=== PATIENT | male | born 1985 | race Caucasian/White ===

== ENCOUNTER 2021-02-03 09:09 | Emergency (ER) | payer SELFPAY ==
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
[2021-02-03 09:52] LABS: Absolute Lymphocytes (CBC) 1.4 K/uL (0.7-4.9); Basophils % 0.5 % (0-1.3); Hematocrit 41.1 % (39.6-49.0); Lymphocytes % 11.4 % (15.3-44.8); RBC Red Blood Cell Count 4.67 M/uL (4.33-5.43)
[2021-02-03 10:05] LABS: Albumin 4.2 g/dL (3.4-5.0); Bilirubin Total 0.4 mg/dL (0.2-1.0); Potassium 3.3 mmol/L (3.5-5.1); Protein, Total 8.4 g/dL (6.4-8.2)
[2021-02-03] MEDS ORDERED: NA CHLORIDE 0.9% 1,000 ML ONE (10:47)
[2021-02-03] MEDS ORDERED: CEFAZOLIN/SWI 1gm 1 GM/10 ML SYR ONE (10:47)
--- NOTE | 2021-02-03 10:57 | RAD REPORT ---
EXAM DESCRIPTION: Mario Bernabe Left02/03/2021 10:11 am CLINICAL HISTORY: Leg pain FINDINGS: External fixator device in place. Comminuted fracture involves the distal tibia. Markedly displaced medial malleolar fracture fragment
--- NOTE | 2021-02-03 11:00 | RAD REPORT ---
EXAM DESCRIPTION: RAD - Foot Left 2 View - 02/03/2021 10:11 am CLINICAL HISTORY: Left Foot pain FINDINGS: The external fixator device obscures visualization of portions of the calcaneus. Limited two view series obtained. No acute fracture/dislocation seen involving the foot.
--- NOTE | 2021-02-03 11:54 | EDPHYS ---
Physician Documentation [facility] Name: Brie Heredia Age: 35 yrs Sex: Male : 1985 Arrival Date: 02/03/2021 Time: 09:16 Bed 5 Private MD: Parviz Shafer HPI: 02/03 09:27 This 35 yrs old Male presents to ER via EMS with complaints of Leg Swelling. pacheco 09:27 The patient presents with decreased range of motion, pain, swelling, tenderness. The pacheco complaints affect the lateral aspect of left calf, left lateral ankle, lateral aspect of left foot, left heel, left medial ankle and left kitchen. Context: resulted from the patient falling. Onset: The symptoms/episode began/occurred 6 week(s) ago. Modifying factors: The symptoms are alleviated by elevating leg, remaining still, the symptoms are aggravated by movement, weight bearing. Associated signs and symptoms: The patient has no apparent associated signs or symptoms. The patient presents with decreased range of motion, pain, swelling, tenderness. The complaints affect the right foot, lateral aspect of left foot, medial aspect of left foot, left kitchen and dorsum of left foot. Context: The problem was sustained at home. Historical: - Allergies: 09:19 Sulfa (Sulfonamide Antibiotics); aa5 - Home Meds: 09:19 Suboxone sublingual [Active]; aa5 - PMHx: 09:19 Drug abuse; aa5 - PSHx: 09:19 L tib-fib sx; aa5 - Immunization history:: Adult Immunizations up to date, Vaccine Information Sheet provided. - Family history:: not pertinent. - Social history:: Smoking status: unknown. ROS: 09:27 Constitutional: Negative for fever, chills, and weight loss, Eyes: Negative for injury, pacheco pain, redness, and discharge, ENT: Negative for injury, pain, and discharge, Neck: Negative for injury, pain, and swelling, Cardiovascular: Negative for chest pain, palpitations, and edema, Respiratory: Negative for shortness of breath, cough, wheezing, and pleuritic chest pain, Abdomen/GI: Negative for abdominal pain, nausea, vomiting, diarrhea, and constipation, Back: Negative for injury and pain, : Negative for injury, bleeding, discharge, and swelling, Neuro: Negative for headache, weakness, numbness, tingling, and seizure, Psych: Negative for depression, anxiety, suicide ideation, homicidal ideation, and hallucinations, Allergy/Immunology: Negative for hives, rash, and allergies, Endocrine: Negative for neck swelling, polydipsia, polyuria, polyphagia, and marked weight changes, Hematologic/Lymphatic: Negative for swollen nodes, abnormal bleeding, and unusual bruising. 09:27 MS/extremity: Positive for decreased range of motion, pain, swelling, tenderness, of the left lateral ankle, lateral aspect of left foot, left heel, medial aspect of left foot, left kitchen and dorsum of left foot. Exam: 09:27 Constitutional: This is a well developed, well nourished patient who is awake, alert, pacheco and in no acute distress. Head/Face: Normocephalic, atraumatic. Eyes: Pupils equal round and reactive to light, extra-ocular motions intact. Lids and lashes normal. Conjunctiva and sclera are non-icteric and not injected. Cornea within normal limits. Periorbital areas with no swelling, redness, or edema. ENT: Nares patent. No nasal discharge, no septal abnormalities noted. Tympanic membranes are normal and external auditory canals are clear. Oropharynx with no redness, swelling, or masses, exudates, or evidence of obstruction, uvula midline. Mucous membranes moist. Neck: Trachea midline, no thyromegaly or masses palpated, and no cervical lymphadenopathy. Supple, full range of motion without nuchal rigidity, or vertebral point tenderness. No Meningismus. Chest/axilla: Normal chest wall appearance and motion. Nontender with no deformity. No lesions are appreciated. Cardiovascular: Regular rate and rhythm with a normal S1 and S2. No gallops, murmurs, or rubs. Normal PMI, no JVD. No pulse deficits. Respiratory: Lungs have equal breath sounds bilaterally, clear to auscultation and percussion. No rales, rhonchi or wheezes noted. No increased work of breathing, no retractions or nasal flaring. Abdomen/GI: Soft, non-tender, with normal bowel sounds. No distension or tympany. No guarding or rebound. No evidence of tenderness throughout. Back: No spinal tenderness. No costovertebral tenderness. Full range of motion. Male : Normal genitalia with no discharge or lesions. Neuro: Awake and alert, GCS 15, oriented to person, place, time, and situation. Cranial nerves II-XII grossly intact. Motor strength 5/5 in all extremities. Sensory grossly intact. Cerebellar exam normal. Normal gait. Psych: Awake, alert, with orientation to person, place and time. Behavior, mood, and affect are within normal limits. 09:27 Skin: cellulitis, that is moderate, on the lateral side of left heel, medial aspect of left heel and heel of left foot. Vital Signs: 09:16 BP 147 / 90; Pulse 100; Resp 20 S; Temp 97.8(TE); Pulse Ox 100% on R/A; aa5 10:00 BP 114 / 82; Pulse 82; Resp 18; Pulse Ox 100% on R/A; tr6 MDM: 09:22 Patient medically screened. [facility] 09:30 Differential diagnosis: closed fracture, tendonitis, sprain. Data reviewed: vital pacheco signs, nurses notes, lab test result(s), radiologic studies, plain films. Data interpreted: court recording monitor: rate is 100 beats/min, rhythm is regular, Pulse oximetry: on room air is 100 %. Test interpretation: by ED physician or midlevel provider: plain radiologic studies. Counseling: I had a detailed discussion with the patient and/or guardian regarding: the historical points, exam findings, and any diagnostic results supporting the discharge/admit diagnosis, lab results, radiology results, the need to transfer to another facility, for higher level of care, [facility] does not immediately have the required specialist. 02/03 09:27 Order name: CBC with Diff [facility] 02/03 09:27 Order name: Comprehensive Metabolic Panel [facility] 02/03 09:27 Order name: Sed Rate [facility] 02/03 09:28 Order name: CBC with Automated Diff; Complete Time: 11:17 [facility] 02/03 09:28 Order name: Comprehensive Metabolic Panel; Complete Time: 11:17 [facility] 02/03 09:28 Order name: Sedimentation Rate, Westergren; Complete Time: 11:17 [facility] 02/03 09:27 Order name: Tib Fib Left XRAY; Complete Time: 11:17 [facility] 02/03 10:11 Order name: Foot Left 2 View; Complete Time: 11:17 [facility] 02/03 11:55 Order name: SARS-COV-2 RT PCR [facility] 02/03 09:44 Order name: IV Saline Lock; Complete Time: 09:44 [email or web address] 02/03 12:08 Order name: Crutches; Complete Time: 12:25 pacheco Administered Medications: 10:30 Drug: Ancef (cefazolin) 1 grams Route: IVPB; Site: right antecubital; tr6 10:30 Drug: NS 0.9% 1000 ml Route: IV; Rate: 1 bolus; Site: right antecubital; tr6 12:10 Drug: KeFLEX (cephalexin) 500 mg {Note: med given to pt. pt placed med in water and tr6 states "I'll take it later." MD Su aware.} Route: PO; 12:15 Drug: Bactroban (mupirocin) Ointment 2 % 1 application Route: Topical; Site: affected tr6 area; 12:15 Drug: Doxycycline 200 mg {Note: med given to pt. pt placed med in water jug and stated tr6 "i'll take it later." MD Su aware.} Route: PO; 12:20 Drug: Ativan (LORazepam) 1 mg Route: IVP; Site: right antecubital; tr6 Disposition Summary: 02/03/21 11:54 Discharge Ordered Location: Home pacheco Problem: new pacheco Symptoms: have improved pacheco Condition: Stable pacheco Diagnosis - Cellulitis and acute lymphangitis of other parts of limb - local, external fixator pacheco - Abuse of other non-psychoactive substances pacheco Followup: pacheco - With: Private Physician - When: 2 - 3 days - Reason: Recheck today's complaints, Continuance of care, Re-evaluation by your physician Followup: pacheco - With: Gilberto Solomon MD - When: 2 - 3 days - Reason: Recheck today's complaints, Re-evaluation by your physician Discharge Instructions: - Discharge Summary Sheet pacheco - Displaced Bimalleolar Ankle Fracture Treated With ORIF pacheco - Cellulitis, Adult pacheco - Substance Use Disorder pacheco - Tibial Fracture, Adult pacheco - Cellulitis, Adult, [id number] pacheco - Displaced Bimalleolar Ankle Fracture Treated With ORIF, Care After pacheco Forms: - Medication Reconciliation Form pacheco - Thank You Letter pacheco - Antibiotic Education pacheco - Prescription Opioid Use pacheco Prescriptions: - Centany 2 % Topical ointment - apply 1 application by TOPICAL route 3 times per day; 22 gram; Refills: 0, pacheco Product Selection Permitted - Cephalexin 500 mg Oral Capsule - take 1 capsule by ORAL route every 6 hours for 10 days; 40 capsule; Refills: 0, [facility] Product Selection Permitted - Doxycycline Hyclate 100 mg Oral Tablet - take 1 tablet by ORAL route every 12 hours; 20 tablet; Refills: 0, Product pacheco Selection Permitted Signatures: Dispatcher [employer] EDParviz Fisher MD MD cha Calderon, Audri, RN RN aa5 Tammy Urbina [email or web address] Laquita Read RN RN tr6 Corrections: (The following items were deleted from the chart) 09:20 09:19 Allergies: No Known Allergies; aa5 aa5 10:11 09:28 Foot Left 3 View+RAD.RAD.BRZ ordered. EDMS EDMS 10:51 09:46 CORONAVIRUS+MR.LAB.BRZ ordered. EDMS EDMS
--- NOTE | 2021-02-03 11:54 | ER ---
[facility] Name: Brie Heredia Age: 35 yrs Sex: Male : 1985 Arrival Date: 02/03/2021 Time: 09:16 Bed 5 Private MD: Diagnosis: Cellulitis and acute lymphangitis of other parts of limb-local, external fixator;Abuse of other non-psychoactive substances Presentation: 02/03 09:16 Chief complaint: EMS states: Pt had leg surgery on December 2020 at [facility] in [place], [place] and has not followed-up since then. Swelling and redness noted to left lower leg with external fixator in place noted. Coronavirus screen: At this time, the client does not indicate any symptoms associated with coronavirus-19. Ebola Screen: Patient negative for fever greater than or equal to 101.5 degrees Fahrenheit, and additional compatible Ebola Virus Disease symptoms. Initial Sepsis Screen: Does the patient meet any 2 criteria? HR > 90 bpm. Does the patient have a suspected source of infection? Yes:. Risk Assessment: Do you want to hurt yourself or someone else? Patient reports no desire to harm self or others. Onset of symptoms was 2020. 09:16 Method Of Arrival: EMS: [facility] 09:16 Acuity: ELISE 3 aa5 Historical: - Allergies: 09:19 Sulfa (Sulfonamide Antibiotics); aa5 - Home Meds: 09:19 Suboxone sublingual [Active]; aa5 - PMHx: 09:19 Drug abuse; aa5 - PSHx: 09:19 L tib-fib sx; aa5 - Immunization history:: Adult Immunizations up to date, Vaccine Information Sheet provided. - Family history:: not pertinent. - Social history:: Smoking status: unknown. Screenin:49 Nutritional screening: No deficits noted. Tuberculosis screening: No symptoms or risk tr6 factors identified. Fall Risk Assessment: 09:47 General: Appears in no apparent distress. comfortable, Behavior is anxious, tr6 inappropriate for age, restless. Pain: Complains of pain in left foot. Neuro: Level of Consciousness is awake, alert, obeys commands, confused, Oriented to person, place, time, Speech is normal. Cardiovascular: No deficits noted. Respiratory: No deficits noted. GI: No deficits noted. : No deficits noted. EENT: No deficits noted. Derm: Skin is red, redness to left foot. Musculoskeletal: Range of motion: limited in left ankle left external fixator to left foot. 10:49 Reassessment: pt believes that he is in coma and that staff is lying to him. tr6 11:15 Reassessment: instructions reviewed with pt about care for external fixator. pt unable tr6 to tolerate education as he continues to state "I know you're lying to me. I know I'm .". 12:28 Reassessment: results reviewed with pt. RN attempted to give pt PO antibiotics. pt took tr6 meds and then spit them in water jug. When RN asked pt to take them pt states "i'll take them later" MD Su aware. Vital Signs: 09:16 BP 147 / 90; Pulse 100; Resp 20 S; Temp 97.8(TE); Pulse Ox 100% on R/A; aa5 10:00 BP 114 / 82; Pulse 82; Resp 18; Pulse Ox 100% on R/A; tr6 ED Course: 09:16 Patient arrived in ED. aa5 09:16 Arm band placed on. aa5 09:19 Triage completed. aa5 09:22 Parviz Su MD is Attending Physician. pacheco 09:37 Initial lab(s) drawn, by me, sent to lab. Inserted saline lock: 20 gauge in right kj1 antecubital area, using aseptic technique. Blood collected. 09:42 Laquita Read, SHARAD is Primary Nurse. tr6 09:49 Resting quietly. Awaiting lab results. tr6 09:49 Patient has correct armband on for positive identification. Placed in gown. Bed in low tr6 position. Call light in reach. Side rails up X2. Pulse ox on. NIBP on. Door closed. Noise minimized. Visitors limited. Lights dimmed. Moved to private room. 09:49 No provider procedures requiring assistance completed. Patient maintains SpO2 tr6 saturation greater than 95% on room air. 10:11 Tib Fib Left XRAY In Process Unspecified. EDMS 10:11 Foot Left 2 View In Process Unspecified. EDMS 11:[address] Su to [facility], pt denied due to all [facility] being on divert, per Amanda. 11:51 Gilberto Solomon MD is Referral Physician. [facility] 12:29 IV discontinued, intact, bleeding controlled, No redness/swelling at site. Pressure tr6 dressing applied. Administered Medications: 10:30 Drug: Ancef (cefazolin) 1 grams Route: IVPB; Site: right antecubital; tr6 10:30 Drug: NS 0.9% 1000 ml Route: IV; Rate: 1 bolus; Site: right antecubital; tr6 12:10 Drug: KeFLEX (cephalexin) 500 mg {Note: med given to pt. pt placed med in water and tr6 states "I'll take it later." MD Su aware.} Route: PO; 12:15 Drug: Bactroban (mupirocin) Ointment 2 % 1 application Route: Topical; Site: affected tr6 area; 12:15 Drug: Doxycycline 200 mg {Note: med given to pt. pt placed med in water jug and stated tr6 "i'll take it later." MD Su aware.} Route: PO; 12:20 Drug: Ativan (LORazepam) 1 mg Route: IVP; Site: right antecubital; tr6 Outcome: 11:54 Discharge ordered by . pacheco 12:28 Discharged to home via wheelchair, with crutches. tr6 12:28 Condition: stable 12:28 Discharge instructions given to patient, Instructed on discharge instructions, no drinking with medication, medication usage, safety practices, crutch walking, wound care, Demonstrated understanding of instructions, follow-up care, medications, wound care, crutch walking, Prescriptions given X 3. 12:30 Patient left the ED. tr6 Signatures: Dispatcher [employer] EDMS Isha Carlson Corey, MD MD cha Calderon, Audri RN RN [email or web address] Tammy Urbina Tiffany, RN RN tr6 Corrections: (The following items were deleted from the chart) 09:20 09:19 Allergies: No Known Allergies; christina vasquez
[2021-02-03] MEDS ORDERED: MUPIROCIN 2% OINT 22GM TUBE TOP ONE ×2 (12:21)
[2021-02-03] MEDS ORDERED: DOXYCYCLINE 100 MG CAP PO ONE (12:21)
[2021-02-03] MEDS ORDERED: CEPHALEXIN 250 MG CAP ONE (12:21)
[2021-02-03] MEDS ORDERED: LORazepam 2 MG/ML VIAL ONE (12:36)
[2021-02-03 12:37] VITALS: TEMP 97.8; O2SAT 100
[2021-02-03 12:38] VITALS: BP 114/82
== END 2021-02-03 12:30 | disposition home or self-care (01) ==
LOC: ER 09:09
DX: L03.116 Cellulitis of left lower limb (principal); L03.126 Acute lymphangitis of left lower limb; F55.8 Abuse of other non-psychoactive substances; Z20.822 Contact with and (suspected) exposure to COVID-19; Z88.2 Allergy status to sulfonamides
CPT/HCPCS: 36415; 80053; 85025; 85652; 96374; 96375; 99285; J0690; J7030; U0003

== ENCOUNTER 2021-02-04 23:42 | Emergency (ER) | payer SELFPAY ==
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
--- NOTE | 2021-02-05 03:30 | EDPHYS ---
Physician Documentation [facility] Name: Brie Heredia Age: 35 yrs Sex: Male : 1985 Arrival Date: 02/04/2021 Time: 23:48 Bed 12 Private MD: SUNI Physician Parviz Su HPI: 02/05 03:21 This 35 yrs old Male presents to ER via Wheelchair with complaints of LEFT pacheco BACK PAIN. 03:21 The patient presents with decreased range of motion, pain, that is acute. The pacheco complaints affect the lateral aspect of left calf, left lateral ankle, lateral aspect of left foot, left heel, medial aspect of left calf, medial aspect of left foot, left kitchen and anterior aspect of left ankle. Context: The problem was sustained at home, resulted from the patient falling, hanging on a ledge. Onset: The symptoms/episode began/occurred 5 day(s) ago. Modifying factors: The symptoms are alleviated by nothing. elevating leg, remaining still, the symptoms are aggravated by nothing. Associated signs and symptoms: The patient has no apparent associated signs or symptoms. Severity of symptoms: At their worst the symptoms were mild, moderate, in the emergency department the symptoms are unchanged. The patient has not experienced similar symptoms in the past. Historical: - Allergies: 02/04 23:54 Sulfa (Sulfonamide Antibiotics); kg - Home Meds: 23:54 Suboxone sublingual [Active]; kg - PMHx: 23:54 drug abuse; kg - PSHx: 23:54 L tib-fib sx; kg - Immunization history:: Adult Immunizations not up to date, Client reports having NOT received the Covid vaccine. - Social history:: Smoking status: Patient reports the use of cigarette tobacco products, smokes one-half pack cigarettes per day, Patient uses alcohol, on a daily basis. - Family history:: not pertinent. ROS: 02/05 03:21 Constitutional: Negative for fever, chills, and weight loss, Eyes: Negative for injury, pacheco pain, redness, and discharge, ENT: Negative for injury, pain, and discharge, Neck: Negative for injury, pain, and swelling, Cardiovascular: Negative for chest pain, palpitations, and edema, Respiratory: Negative for shortness of breath, cough, wheezing, and pleuritic chest pain, Abdomen/GI: Negative for abdominal pain, nausea, vomiting, diarrhea, and constipation, Back: Negative for injury and pain, : Negative for injury, bleeding, discharge, and swelling, Neuro: Negative for headache, weakness, numbness, tingling, and seizure, Psych: Negative for depression, anxiety, suicide ideation, homicidal ideation, and hallucinations, Allergy/Immunology: Negative for hives, rash, and allergies, Endocrine: Negative for neck swelling, polydipsia, polyuria, polyphagia, and marked weight changes, Hematologic/Lymphatic: Negative for swollen nodes, abnormal bleeding, and unusual bruising. MS/extremity: Positive for decreased range of motion, pain, swelling, tenderness, of the lateral aspect of left calf, left lateral ankle, lateral aspect of left foot, left heel, medial aspect of left foot, left kitchen, anterior aspect of left ankle and dorsum of left foot. Skin: Positive for erythema, swelling, of the lateral side of right heel, right Achilles, right lateral malleolus, right medial malleolus and medial aspect of right heel. Exam: 03:21 Constitutional: This is a well developed, well nourished patient who is awake, alert, pacheco and in no acute distress. Head/Face: Normocephalic, atraumatic. Eyes: Pupils equal round and reactive to light, extra-ocular motions intact. Lids and lashes normal. Conjunctiva and sclera are non-icteric and not injected. Cornea within normal limits. Periorbital areas with no swelling, redness, or edema. ENT: Nares patent. No nasal discharge, no septal abnormalities noted. Tympanic membranes are normal and external auditory canals are clear. Oropharynx with no redness, swelling, or masses, exudates, or evidence of obstruction, uvula midline. Mucous membranes moist. Neck: Trachea midline, no thyromegaly or masses palpated, and no cervical lymphadenopathy. Supple, full range of motion without nuchal rigidity, or vertebral point tenderness. No Meningismus. Chest/axilla: Normal chest wall appearance and motion. Nontender with no deformity. No lesions are appreciated. Cardiovascular: Regular rate and rhythm with a normal S1 and S2. No gallops, murmurs, or rubs. Normal PMI, no JVD. No pulse deficits. Respiratory: Lungs have equal breath sounds bilaterally, clear to auscultation and percussion. No rales, rhonchi or wheezes noted. No increased work of breathing, no retractions or nasal flaring. Abdomen/GI: Soft, non-tender, with normal bowel sounds. No distension or tympany. No guarding or rebound. No evidence of tenderness throughout. Back: No spinal tenderness. No costovertebral tenderness. Full range of motion. Male : Normal genitalia with no discharge or lesions. Neuro: Awake and alert, GCS 15, oriented to person, place, time, and situation. Cranial nerves II-XII grossly intact. Motor strength 5/5 in all extremities. Sensory grossly intact. Cerebellar exam normal. Normal gait. Psych: Awake, alert, with orientation to person, place and time. Behavior, mood, and affect are within normal limits. 03:21 Skin: cellulitis, that is moderate, induration, that is mild is noted, injury, puncture(s), of the lateral side of left heel, left Achilles, left lateral malleolus, left medial malleolus, medial aspect of left heel and heel of left foot. Vital Signs: 02/04 23:50 Pulse 99; Resp 20; Temp 98.1(O); Pulse Ox 99% on R/A; Weight 81.65 kg (R); Height 5 ft. kg 8 in. (172.72 cm); Pain 10/10; 02/05 04:46 BP 114 / 61; Pulse 76; Resp 16 S; Temp 98.3(O); Pulse Ox 98% on R/A; bb 02/04 23:50 Body Mass Index 27.37 (81.65 kg, 172.72 cm) kg MDM: 02:41 Patient medically screened. [facility] 03:28 Differential diagnosis: abrasion, tendonitis. Data reviewed: vital signs, nurses notes, [facility] lab test result(s), radiologic studies, plain films. Data interpreted: monitor and storage bin tender: rate is 20 beats/min, rhythm is regular. Test interpretation: by ED physician or midlevel provider: plain radiologic studies. Counseling: I had a detailed discussion with the patient and/or guardian regarding: the historical points, exam findings, and any diagnostic results supporting the discharge/admit diagnosis, lab results, radiology results. 02/05 02:53 Order name: CBC with Diff; Complete Time: 04:44 pacheco 02/05 02:53 Order name: Comprehensive Metabolic Panel; Complete Time: 04:44 pacheco 02/05 05:14 Order name: SARS-COV-2 RT PCR EDMS 02/05 04:46 Order name: Diet Regular; Complete Time: 04:47 pacheco Administered Medications: 03:35 Drug: NS 0.9% 500 ml Route: IV; Rate: bolus; Site: left antecubital; bb 04:22 Follow up: IV Status: Completed infusion; IV Intake: 500ml bb 03:37 Drug: Ketorolac 30 mg Route: IVP; Site: left antecubital; bb 04:22 Follow up: Response: No adverse reaction bb 03:40 Drug: Ancef (cefazolin) 2 grams Route: IVPB; Infused Over: 30 mins; Site: left bb antecubital; 04:22 Follow up: IV Status: Completed infusion; IV Intake: 100ml bb 05:01 Drug: Potassium Effervescent Tablet 25 mEq Route: PO; bb 05:31 Follow up: Response: No adverse reaction bb Disposition Summary: 02/05/21 03:30 Transfer Ordered Transfer Location: [facility] Reason: Higher level of care pacheco Condition: Stable pacheco Problem: new pacheco Symptoms: have improved pacheco Accepting Physician: dr alvarenga(02/05/21 05:31) savanna Diagnosis - Cellulitis and acute lymphangitis of other parts of limb - external fixator, pacheco infected Forms: - Medication Reconciliation Form pacheco - SBAR form pacheco Signatures: Dispatcher [employer] EDMS Parviz Su MD MD cha Ballard, Brenda, RN RN bb Graham, Kristen, RN RN kg Corrections: (The following items were deleted from the chart) 04:22 02:58 CORONAVIRUS+MR.LAB.BRZ ordered. EDMS EDMS 05:31 03:30 dr colette corrales
--- NOTE | 2021-02-05 03:30 | ER ---
Nurse's Notes [facility] Name: Brie Heredia Age: 35 yrs Sex: Male : 1985 Arrival Date: 02/04/2021 Time: 23:48 Bed 12 Private MD: Diagnosis: Cellulitis and acute lymphangitis of other parts of limb-external fixator, infected Presentation: 02/04 23:50 Chief complaint: Patient states: Left foot pain and swelling x 1 day. Pt stated, "I was kg just here yesterday and they gave me sulfa antibiotics and I'm allergic to them and my foot hurts and all swollen up. I need a mental health evaluation. I feel like I'm in a dream and cant wake up, bad things keep happening to me. I'm around people that love me but its just not working. " Pt denies any SI or HI. Coronavirus screen: Vaccine status: Patient reports being unvaccinated. Client denies travel out of the [place] in the last 14 days. At this time, unable to obtain information related to travel outside the [place] At this time, the client does not indicate any symptoms associated with coronavirus-19. Ebola Screen: Patient negative for fever greater than or equal to 101.5 degrees Fahrenheit, and additional compatible Ebola Virus Disease symptoms Patient denies exposure to infectious person. Patient denies travel to an Ebola-affected area in the 21 days before illness onset. Initial Sepsis Screen: Does the patient meet any 2 criteria? No. Patient's initial sepsis screen is negative. Does the patient have a suspected source of infection? No. Patient's initial sepsis screen is negative. Risk Assessment: Do you want to hurt yourself or someone else? Patient reports no desire to harm self or others. Onset of symptoms was February 04, 2021. 23:50 Method Of Arrival: Wheelchair kg 23:50 Acuity: ELISE 4 kg Triage Assessment: 23:54 General: Appears in no apparent distress. Behavior is cooperative, appropriate for age, kg anxious, quiet. Pain: Complains of pain in left foot and left leg. Musculoskeletal: Swelling present in left foot Redness to left foot. Historical: - Allergies: 23:54 Sulfa (Sulfonamide Antibiotics); kg - Home Meds: 23:54 Suboxone sublingual [Active]; kg - PMHx: 23:54 drug abuse; kg - PSHx: 23:54 L tib-fib sx; kg - Immunization history:: Adult Immunizations not up to date, Client reports having NOT received the Covid vaccine. - Social history:: Smoking status: Patient reports the use of cigarette tobacco products, smokes one-half pack cigarettes per day, Patient uses alcohol, on a daily basis. - Family history:: not pertinent. Screenin:57 Abuse screen: Denies threats or abuse. Denies injuries from another. Nutritional kg screening: No deficits noted. Tuberculosis screening: No symptoms or risk factors identified. Fall Risk Fall in past 12 months (25 points). Secondary diagnosis (15 points) impaired mobility, No IV (0 pts). Ambulatory Aid- Crutches/Cane/Walker (15 pts). Gait- Impaired (20 pts.). Mental Status- Oriented to own ability (0 pts). Total Graves Fall Scale indicates No Risk (0-24 pts). Assessment: 02/05 02:30 General: Appears in no apparent distress. uncomfortable, Behavior is restless. Pain: bb Complains of pain in left leg. Neuro: Level of Consciousness is awake, listless, Oriented to person, place, situation. Cardiovascular: Capillary refill < 3 seconds Patient's skin is warm and dry. Respiratory: Respiratory effort is even, unlabored, Respiratory pattern is regular. GI: No signs and/or symptoms were reported involving the gastrointestinal system. Derm: Skin is pink, warm \\T\\ dry. Musculoskeletal: Swelling present in left leg Reports pain in left leg external fixator in place pt foot erythematous, edematous. 04:22 Reassessment: Patient is alert, oriented x 3, equal unlabored respirations, skin bb warm/dry/pink. awaiting transfer, IV site intact with no erythema or edema noted. 04:56 Reassessment: report called to [place] ED spoke to Edwige OROURKE. savanna 05:30 Reassessment: EMS at bedside for transfer of pt to [facility] pt is A\\T\\O x 4, resp bb unlabored. IV site intact with no erythema or edema noted. 05:31 Reassessment: pt given sandwich, drink, and chips to take with him. bb Vital Signs: 02/04 23:50 Pulse 99; Resp 20; Temp 98.1(O); Pulse Ox 99% on R/A; Weight 81.65 kg (R); Height 5 ft. kg 8 in. (172.72 cm); Pain 10/10; 02/05 04:46 BP 114 / 61; Pulse 76; Resp 16 S; Temp 98.3(O); Pulse Ox 98% on R/A; bb 02/04 23:50 Body Mass Index 27.37 (81.65 kg, 172.72 cm) kg ED Course: 02/04 23:48 Patient arrived in ED. cf2 23:54 Triage completed. kg 23:54 Arm band placed on. kg 23:57 Patient has correct armband on for positive identification. kg 02/05 02:41 Parviz Su MD is Attending Physician. pacheco 02:56 initiated a transfer with Laura Toney from [facility]. 2 03:23 administrative approval given by Laura Toney/ patient has been accepted to [address] to the Emergency Department/ Dr. Gee accepted the patient in transfer/ report to be called to [phone]. 03:29 Wanda Galeas, RN is Primary Nurse. bb 03:35 Initial lab(s) drawn, by me, sent to lab. COVID swab sent to lab. Inserted saline lock: bb 20 gauge in left antecubital area, using aseptic technique. Blood collected. 03:55 Patient transferred, IV remains in place. bb 04:23 No provider procedures requiring assistance completed. bb Administered Medications: 03:35 Drug: NS 0.9% 500 ml Route: IV; Rate: bolus; Site: left antecubital; bb 04:22 Follow up: IV Status: Completed infusion; IV Intake: 500ml bb 03:37 Drug: Ketorolac 30 mg Route: IVP; Site: left antecubital; bb 04:22 Follow up: Response: No adverse reaction bb 03:40 Drug: Ancef (cefazolin) 2 grams Route: IVPB; Infused Over: 30 mins; Site: left bb antecubital; 04:22 Follow up: IV Status: Completed infusion; IV Intake: 100ml bb 05:01 Drug: Potassium Effervescent Tablet 25 mEq Route: PO; bb 05:31 Follow up: Response: No adverse reaction bb Intake: 04:22 IV: 100ml; Total: 100ml. bb 04:22 IV: 500ml; Total: 600ml. bb Outcome: 03:30 ER care complete, transfer ordered by . pacheco 03:55 Instructed on the need for transfer. bb 04:46 Condition: stable bb 04:57 Transferred by ground EMS to [facility], Transfer form completed. X-rays sent bb w/ patient. 05:31 Patient left the ED. bb Signatures: Parviz Su MD MD cha Ballard, Brenda, RN RN Trish Huertas mw2 Freddie Peacock 2 Nancy Renner, RN RN kg
[2021-02-05] MEDS ORDERED: NA CHLORIDE 0.9% 500 ML ONE (03:40)
[2021-02-05] MEDS ORDERED: MUPIROCIN 2% OINT 22GM TUBE TOP ONE (03:41)
[2021-02-05] MEDS ORDERED: CEFAZOLIN/SWI 1gm 2 GM/20 ML SYR ONE (03:43)
[2021-02-05] MEDS ORDERED: KETOROLAC 30 MG/ML INJ ONE (03:43)
[2021-02-05] MEDS ORDERED: NA CHLORIDE 0.9% 100 ML ONE (03:44)
[2021-02-05 04:04] LABS: Absolute Lymphocytes (CBC) 1.9 K/uL (0.7-4.9); Basophils % 0.6 % (0-1.3); Hematocrit 38.6 % (39.6-49.0); Lymphocytes % 19.7 % (15.3-44.8); MPV 8.5 fL (7.6-11.3); RBC Red Blood Cell Count 4.38 M/uL (4.33-5.43)
[2021-02-05 04:25] LABS: Albumin 3.6 g/dL (3.4-5.0); Bilirubin Total 0.3 mg/dL (0.2-1.0); Potassium 3.3 mmol/L (3.5-5.1); Protein, Total 7.3 g/dL (6.4-8.2)
[2021-02-05] MEDS ORDERED: POTASSIUM 25 MEQ EFFERV TAB ONE (05:21)
[2021-02-05 05:41] VITALS: BP 114/61; TEMP 98.3; O2SAT 98
== END 2021-02-05 05:31 | disposition short-term general hospital (02) ==
LOC: ER 23:42
DX: L03.116 Cellulitis of left lower limb (principal); L03.126 Acute lymphangitis of left lower limb; F17.210 Nicotine dependence, cigarettes, uncomplicated; Z88.2 Allergy status to sulfonamides
CPT/HCPCS: 36415; 80053; 85025; 96365; 96375; 99285; J0690; J7040; U0003

== ENCOUNTER 2024-08-13 16:32 | Emergency (ER) | payer OTHER, SELFPAY ==
[2024-08-13] MEDS ORDERED: KETOROLAC 30 MG/ML INJ ONE (18:44)
--- NOTE | 2024-08-13 18:45 | RAD REPORT ---
EXAM:Extremity Venous Uni Ltd HISTORY: Right leg pain TECHNIQUE: Sonographic evaluation right lower extremity performed.Grayscale, color and spectral marianne sis performed on all vessels COMPARISON: None. FINDINGS: Right common femoral, superficial femoral, greater saphenous, popliteal and posterior tibial veins ar e compressible and demonstrate augmentation. Doppler demonstrates good flow. IMPRESSION: No evidence of deep venous thrombosis involving the right lower extremity.
--- NOTE | 2024-08-13 19:22 | ER ---
Nurse's Notes [facility] Name: Brie Heredia Age: 39 yrs Sex: Male : 1985 Arrival Date: 08/13/2024 Time: 16:32 Bed 10 [facility] MD: Diagnosis: Sciatica, right side Presentation: 08/13 16:47 Chief complaint: Right posterior leg pain that radiates to behind the right knee that hb started after bending over to pain 2 weeks ago. Pain is worse with movement and when bends head forward. Coronavirus screen: At this time, the client does not indicate any symptoms associated with coronavirus-19. Ebola Screen: No symptoms or risks identified at this time. Initial Sepsis Screen: Does the patient meet any 2 criteria? No. Patient's initial sepsis screen is negative. Does the patient have a suspected source of infection? No. Patient's initial sepsis screen is negative. Risk Assessment: Do you want to hurt yourself or someone else? Patient reports no desire to harm self or others. Onset of symptoms was July 2024. 16:47 Method Of Arrival: Wheelchair hb 16:47 Acuity: ELISE 4 hb Historical: - Allergies: 16:49 Sulfa (Sulfonamide Antibiotics); hb - Home Meds: 16:49 Suboxone sublingual [Active]; hb - PMHx: 16:49 drug abuse; hb - PSHx: 16:49 L tib-fib sx; hb - Immunization history:: Adult Immunizations up to date. - Infectious Disease History:: Denies. - Social history:: Smoking status: Patient reports the use of cigarette tobacco products. Screenin:[address] [facility] ED Fall Risk Assessment (Adult) History of falling in the last 3 months, ap3 including since admission No falls in past 3 months (0 pts) Confusion or Disorientation No (0 pts) Intoxicated or Sedated No (0 pts) Impaired Gait No (0 pts) Mobility Assist Device Used No (0 pt) Altered Elimination No (0 pt) Score/Fall Risk Level 0 - 2 = Low Risk Oriented to surroundings, Maintained a safe environment, Educated pt \T\ family on fall prevention, incl call for assistance when getting out of bed, Assessed \T\ reinforced patient's understanding of fall precautions, Hourly rounding (assess needs \T\ fall precautionary measures) done, Used ambulatory aids as needed (educated on \T\ assisted with). Abuse screen: Denies threats or abuse. Nutritional screening: No deficits noted. Tuberculosis screening: No symptoms or risk factors identified. Assessment: 18:03 General: Appears uncomfortable, Behavior is calm, cooperative, appropriate for age. ap3 Pain: Complains of pain in right leg Pain currently is 10 out of 10 on a pain scale. Neuro: Level of Consciousness is awake, alert, obeys commands, Oriented to person, place, time, situation. Cardiovascular: Patient's skin is warm and dry. Respiratory: Airway is patent Respiratory effort is even, unlabored, Respiratory pattern is regular, symmetrical. 18:56 Reassessment: Patient and/or family updated on plan of care and expected duration. Pain ap3 level reassessed. Patient is alert, oriented x 3, equal unlabored respirations, skin warm/dry/pink. General: Appears in no apparent distress. Vital Signs: 16:47 BP 121 / 70; Pulse 89; Resp 18; Temp 98.6(O); Pulse Ox 96% on R/A; Weight 95.25 kg; hb Height 5 ft. 8 in. ; Pain 10/10; 19:28 BP 118 / 68; Pulse 76; Resp 17; Temp 98.5; Pulse Ox 96% ; me1 16:47 Body Mass Index 31.93 (95.25 kg, 172.72 cm) hb 16:47 Pain Scale: Adult hb ED Course: 16:35 Patient arrived in ED. cj3 16:49 Triage completed. hb 16:50 Arm band placed on. hb 16:59 Parviz Carlos PA is PHCP. cp 16:59 Parviz Su MD is Attending Physician. cp 18:03 Nancy Lambert, SHARAD is Primary Nurse. ap3 18:32 US Extremity Venous Unilateral Ltd In Process Unspecified. EDMS 19:33 Patient has correct armband on for positive identification. Bed in low position. Call me1 light in reach. Side rails up X 1. Provided Education on: POC. Verbalized understanding.. 19:33 No provider procedures requiring assistance completed. Patient did not have IV access me1 during this emergency room visit. Administered Medications: 18:56 Drug: Ketorolac IM 30 mg IM once Route: IM; Site: right deltoid; ap3 19:28 Follow up: Response: No adverse reaction me1 Medication: 19:33 VIS not applicable for this client. me1 Outcome: 19:21 Discharge ordered by MD. cp 19:34 Discharged to home ambulatory, me1 19:34 Condition: stable 19:34 Discharge instructions given to patient, Instructed on discharge instructions, follow up and referral plans. medication usage, Demonstrated understanding of instructions, follow-up care, medications, Prescriptions given X 3, 19:34 Patient left the ED. me1 Signatures: Dispatcher [employer] EDMS Parviz Carlos PA PA cp Coreen Rosas, RN RN Nancy Lambert RN RN ap3 Skylar Weston RN RN me1 Melissa Murry 3
--- NOTE | 2024-08-13 19:22 | EDPHYS ---
Physician Documentation [facility] Name: Brie Heredia Age: 39 yrs Sex: Male : 1985 Arrival Date: 08/13/2024 Time: 16:32 Bed 10 Private MD: SUNI Physician Parviz Su HPI: 08/13 18:00 This 39 yrs old Male presents to ER via Wheelchair with complaints of Leg Pain, Groin cp Pain. 18:00 The patient presents with pain, that is acute. The complaints affect the back of right cp leg. Historical: - Allergies: 16:49 Sulfa (Sulfonamide Antibiotics); hb - Home Meds: 16:49 Suboxone sublingual [Active]; hb - PMHx: 16:49 drug abuse; hb - PSHx: 16:49 L tib-fib sx; hb - Immunization history:: Adult Immunizations up to date. - Infectious Disease History:: Denies. - Social history:: Smoking status: Patient reports the use of cigarette tobacco products. ROS: 18:05 MS/extremity: Positive for pain, of the back of right leg, Negative for injury or acute cp deformity, decreased range of motion, 18:05 Eyes: Negative for injury, pain, redness, and discharge, cp 18:05 Constitutional: Negative for body aches, chills, fever, 18:05 Neck: Negative for pain with movement, pain at rest, stiffness, 18:05 Abdomen/GI: Negative for abdominal pain, nausea, vomiting, and diarrhea, constipation, bowel incontinence, 18:05 Back: Positive for pain at rest, pain with movement, right low back, Negative for injury or acute deformity, 18:05 : Negative for urinary symptoms, hematuria, difficulty urinating, bladder incontinence, 18:05 Neuro: Negative for numbness, tingling, weakness, 18:05 All other systems are negative, Exam: 18:10 Constitutional: The patient appears in no acute distress, alert, awake, non-toxic, well cp developed, well nourished, uncomfortable, 18:10 Head/Face: Normocephalic, atraumatic. cp 18:10 Eyes: Periorbital structures: appear normal, Conjunctiva: normal, no exudate, no injection, Sclera: no appreciated abnormality, Lids and lashes: appear normal, bilaterally, 18:10 ENT: External ear(s): are unremarkable, Nose: is normal, Mouth: Lips: moist, Oral mucosa: moist, Posterior pharynx: Airway: no evidence of obstruction, patent, 18:10 Neck: ROM/movement: is normal, is supple, without pain, no range of motions limitations, 18:10 Chest/axilla: Inspection: normal, 18:10 Cardiovascular: Rate: normal, 18:10 Respiratory: the patient does not display signs of respiratory distress, Respirations: normal, no use of accessory muscles, no retractions, labored breathing, is not present, Breath sounds: are clear throughout, no decreased breath sounds, no stridor, no wheezing, 18:10 Abdomen/GI: Inspection: abdomen appears normal, Palpation: abdomen is soft and non-tender, in all quadrants, 18:10 Back: pain, that is moderate, of the right low back and right buttock, 18:10 Musculoskeletal/extremity: Extremities: noted in the posterior aspect right leg: pain, tenderness, There is no evidence of decreased ROM, deformity, joint pain and/or tenderness, ROM: full passive range of motion, in the right hip and right knee and right ankle, Perfusion: the extremity is normally perfused throughout, the right leg Sensation intact. Vital Signs: 16:47 BP 121 / 70; Pulse 89; Resp 18; Temp 98.6(O); Pulse Ox 96% on R/A; Weight 95.25 kg; hb Height 5 ft. 8 in. ; Pain 10/10; 19:28 BP 118 / 68; Pulse 76; Resp 17; Temp 98.5; Pulse Ox 96% ; me1 16:47 Body Mass Index 31.93 (95.25 kg, 172.72 cm) hb 16:47 Pain Scale: Adult hb MDM: 16:59 Medical Screening Exam initiated cp 18:45 Differential diagnosis: sciatica, low back pain, dvt, cellulitis, radiculopathy, cp bulging disc. 19:20 Data reviewed: vital signs, nurses notes, radiologic studies, ultrasound, and as a cp result, I will discharge patient. 19:20 I considered the following discharge prescriptions or medication management in the emergency department Medications were administered in the Emergency Department. See MAR. Counseling: I had a detailed discussion with the patient and/or guardian regarding the historical points, exam findings, and any diagnostic results supporting the discharge/admit diagnosis, radiology results, to return to the emergency department if symptoms worsen or persist or if there are any questions or concerns that arise at home. Response to treatment: the patient's symptoms have mildly improved after treatment, and as a result, I will discharge patient. 08/13 17:29 Order name: US Extremity Venous Unilateral Ltd; Complete Time: 19:20 cp 08/13 19:21 Interpretation: Report reviewed. cp Administered Medications: 18:56 Drug: Ketorolac IM 30 mg IM once Route: IM; Site: right deltoid; ap3 19:28 Follow up: Response: No adverse reaction me1 Disposition Summary: 08/13/24 19:21 Discharge Ordered Notes: Location: Home cp Problem: new cp Symptoms: have improved cp Condition: Stable cp Diagnosis - Sciatica, right side cp Followup: cp - With: Private Physician - When: 2 - 3 days - Reason: Recheck today's complaints Discharge Instructions: - Discharge Summary Sheet cp - Sciatica cp - Back Exercises cp Forms: - Medication Reconciliation Form cp - Antibiotic Education cp - Prescription Opioid Use cp - Patient Portal Instructions cp - Leadership Thank You Letter cp Prescriptions: - Celebrex 200 mg Oral Capsule - take 1 capsule ORAL route once daily As needed take with food; 20 capsule; cp Refills: 0, Product Selection Permitted - Medrol (Rashad) 4 mg Oral Tablets, Dose Pack - take 1 tablet ORAL route as directed - follow package instructions; 1 packet; cp Refills: 0, Product Selection Permitted - methocarbamol 750 mg Oral tablet - take 1 tablet ORAL route 3 times per day; 30 tablet; Refills: 0, Product cp Selection Permitted Signatures: Dispatcher [employer] EDParviz Ramirez PA PA cp Coreen Rosas RN RN Nancy Lambert RN RN ap3 Skylar Weston RN me1
[2024-08-13 20:12] VITALS: O2SAT 96
[2024-08-13 20:14] VITALS: BP 118/68; TEMP 98.5
== END 2024-08-13 19:34 | disposition home or self-care (01) ==
LOC: ER 16:32
DX: M54.31 Sciatica, right side (principal)
CPT/HCPCS: 93971; 96372; 99284

== ENCOUNTER 2025-03-24 09:45 | Emergency (ER) | payer OTHER, SELFPAY ==
--- NOTE | 2025-03-24 10:02 | EDPHYS ---
Physician Documentation [facility] Name: Brie Heredia Age: 40 yrs Sex: Male : 1985 Arrival Date: 03/24/2025 Time: 09:45 Bed IW1 Private MD: ED Physician Parviz Su HPI: 03/24 10:02 This 40 yrs old Male presents to ER via Ambulatory with complaints of Mouth dr5 Problem, Tired. 10:02 The patient presents with broken tooth/teeth, pain, redness. The problem is located in dr5 the gums. Onset: The symptoms/episode began/occurred 1 week(s) ago. Patient is a 38-year-old male with history of hepatitis C and drug abuse coming in with dental caries and dental pain has been going on for the past week. Patient reports has been taking at home antibiotics and has run out of them. Patient is also requesting treatment for hepatitis C and resources for a primary care doctor.. Historical: - Allergies: 09:58 Sulfa (Sulfonamide Antibiotics); iw - PMHx: 09:58 drug abuse; iw 09:59 hep c; iw - PSHx: 09:58 L tib-fib sx; iw - Infectious Disease History:: Denies. ROS: 10:02 Constitutional: as per hpi dr5 Exam: 10:02 Constitutional: This is a well developed, well nourished patient who is awake, alert, dr5 and in no acute distress. Head/Face: Normocephalic, atraumatic. Eyes: Pupils equal round and reactive to light, extra-ocular motions intact. Lids and lashes normal. Conjunctiva and sclera are non-icteric and not injected. Cornea within normal limits. Periorbital areas with no swelling, redness, or edema. Neck: Trachea midline, no thyromegaly or masses palpated, and no cervical lymphadenopathy. Supple, full range of motion without nuchal rigidity, or vertebral point tenderness. No Meningismus. Chest/axilla: Normal chest wall appearance and motion. Nontender with no deformity. No lesions are appreciated. Cardiovascular: Regular rate and rhythm with a normal S1 and S2. Normal PMI, no JVD. No pulse deficits. Respiratory: Lungs have equal breath sounds bilaterally, clear to auscultation. No rales, rhonchi or wheezes noted. No increased work of breathing, no retractions or nasal flaring. Back: No spinal tenderness. No costovertebral tenderness. Full range of motion. Skin: Warm, dry with normal turgor. Normal color with no rashes, no lesions, and no evidence of cellulitis. MS/ Extremity: Pulses equal, no cyanosis. Neurovascular intact. Full, normal range of motion. Neuro: Awake and alert, GCS 15, oriented to person, place, time, and situation. Cranial nerves II-XII grossly intact. Motor strength 5/5 in all extremities. Sensory grossly intact. Cerebellar exam normal. Normal gait. 10:02 ENT: Dental exam: avulsion, partial, specifically the upper left lateral incisor (#10), dental caries, that is severe, diffusely, Vital Signs: 09:57 BP 128 / 78; Pulse 87; Resp 16; Temp 98; Pulse Ox 98% on R/A; Weight 81.65 kg; Height 5 iw ft. 8 in. ; :57 Body Mass Index 27.37 (81.65 kg, 172.72 cm) iw MDM: 09:52 Medical Screening Exam initiated dr5 : Differential diagnosis: dental caries, gingivitis, dental abscess, pericoronitis. Data dr5 reviewed: vital signs, nurses notes. Consideration of Admission/Observation Escalation of care including admission/observation considered. Escalation considered patient found to have abscess or fever. I considered the following discharge prescriptions or medication management in the emergency department Pain Medications: At this time, prescription pain medications are not recommended, Patient has history of pain medication abuse and does not want pain prescription at this time.. Test considered but Not performed: X-ray: X-ray considered but patient does not have localized swelling or fever. Care significantly affected by the following chronic conditions: Hepatitis C. Care significantly affected by the following Social Determinants of Health: Poor access to healthcare and/or lack of insurance, Poor access to transportation, Problems related to employment. Counseling: I had a detailed discussion with the patient and/or guardian regarding the historical points, exam findings, and any diagnostic results supporting the discharge/admit diagnosis, the presence of at least one elevated blood pressure reading (>120/80) during this emergency department visit, the need for outpatient follow up, for definitive care, a dentist, a family practitioner, to return to the emergency department if symptoms worsen or persist or if there are any questions or concerns that arise at home. Special discussion: I discussed with the patient/guardian in detail that at this point there is no indication for admission to the hospital. It is understood, however, that if the symptoms persist or worsen the patient needs to return immediately for re-evaluation. ED course: [facility] sites for low-cost schedule care list given to patient as well as [facility]. Will start patient on Augmentin and recommend patient make a primary care doctor appointment this week as well as the dental. All question answered. Stricter precautions given. Administered Medications: No medications were administered Disposition Summary: 03/24/25 10:01 Discharge Ordered Notes: Location: Home dr5 Condition: Stable dr5 Diagnosis - Dental root caries dr5 Followup: dr5 - With: Emergency Department - When: As needed - Reason: Worsening of condition Followup: dr5 - With: Private Physician - When: 1 - 2 days - Reason: Recheck today's complaints, Continuance of care, Re-evaluation by your physician Discharge Instructions: - Discharge Summary Sheet dr5 - Dental Pain dr5 Forms: - Medication Reconciliation Form dr5 - Antibiotic Education dr5 - Patient Portal Instructions dr5 - Leadership Thank You Letter dr5 Prescriptions: - Augmentin 875-125 mg Oral Tablet - take 1 tablet ORAL route every 12 hours for 10 days; 20 tablet; Refills: 0, dr5 Product Selection Permitted Signatures: Shireen Breaux RN RN Roderick Yu, ELECTRICIAN ASSISTANT-C ELECTRICIAN ASSISTANT-Cdr5
--- NOTE | 2025-03-24 10:02 | ER ---
Nurse's Notes [facility] Name: Brie Heredia Age: 40 yrs Sex: Male : 1985 Arrival Date: 03/24/2025 Time: 09:45 Bed IW1 Private MD: Diagnosis: Dental root caries Presentation: 03/24 09:57 Chief complaint: Patient states: having a problem remembering stuff, and my tooth has iw been bothering me for a while, has been on antibiotics and ran out. Coronavirus screen: At this time, the client does not indicate any symptoms associated with coronavirus-19. Ebola Screen: No symptoms or risks identified at this time. Initial Sepsis Screen: Does the patient meet any 2 criteria? No. Patient's initial sepsis screen is negative. Does the patient have a suspected source of infection? No. Patient's initial sepsis screen is negative. Risk Assessment: Do you want to hurt yourself or someone else? Patient reports no desire to harm self or others. Onset of symptoms. 09:57 Method Of Arrival: Ambulatory iw 09:57 Acuity: ELISE 4 iw Historical: - Allergies: 09:58 Sulfa (Sulfonamide Antibiotics); iw - PMHx: 09:58 drug abuse; iw 09:59 hep c; iw - PSHx: 09:58 L tib-fib sx; iw - Infectious Disease History:: Denies. Screenin:[address] [facility] ED Fall Risk Assessment (Adult) History of falling in the last 3 months, iw including since admission. Assessment: 10:00 General: Appears in no apparent distress. Behavior is calm, cooperative. Pain: iw Complains of pain in mouth. Neuro: Level of Consciousness is awake, alert, obeys commands, Oriented to person, place, time, situation, Moves all extremities. Full function. Cardiovascular: Patient's skin is warm and dry. Respiratory: Respiratory effort is even, unlabored, Respiratory pattern is regular, symmetrical. GI: Abdomen is flat. Derm: Skin is intact, is healthy with good turgor. 10:02 Musculoskeletal: Range of motion: intact in all extremities. iw Vital Signs: 09:57 BP 128 / 78; Pulse 87; Resp 16; Temp 98; Pulse Ox 98% on R/A; Weight 81.65 kg; Height 5 iw ft. 8 in. ; 09:57 Body Mass Index 27.37 (81.65 kg, 172.72 cm) iw ED Course: 09:49 Patient arrived in ED. cj3 09:52 Roderick Jeffrey FNP-C [facility]. dr5 09:52 Parviz Su MD is Attending Physician. dr5 09:58 Triage completed. iw 09:59 Arm band placed on. iw 10:02 Patient has correct armband on for positive identification. iw 10:02 No provider procedures requiring assistance completed. Patient did not have IV access iw during this emergency room visit. 10:07 Shireen Breaux, RN is Primary Nurse. iw Administered Medications: No medications were administered Medication: 10:02 VIS not applicable for this client. iw Outcome: 10:01 Discharge ordered by . dr5 10:07 Patient left the ED. iw Signatures: Shireen Breaux RN RN iw Roderick Jeffrey FNP-C TECHNICAL SERVICES ASSISTANT-Cdr5 Melissa Murry cj3 Corrections: (The following items were deleted from the chart) 10:00 09:57 BP 128 / 78; Pulse 87bpm; Resp 16bpm; Pulse Ox 98% RA; Temp 98F; iw iw
[2025-03-24 13:00] VITALS: BP 128/78; TEMP 98; O2SAT 98
== END 2025-03-24 10:07 | disposition home or self-care (01) ==
LOC: ER 09:45
DX: K02.7 Dental root caries (principal)
CPT/HCPCS: 99281

== ENCOUNTER 2025-03-25 05:57 | Emergency (ER) | payer OTHER, SELFPAY ==
[2025-03-25] MEDS ORDERED: IBUPROFEN 400 MG TAB ONE (06:25)
--- NOTE | 2025-03-25 07:38 | ER ---
Nurse's Notes [facility] Name: Brie Heredia Age: 40 yrs Sex: Male : 1985 Arrival Date: 03/25/2025 Time: 05:57 Bed DX3 Private MD: Diagnosis: Dental pain Presentation: 03/25 06:10 Chief complaint: EMS states: TOOTH ACHE NOT IMPROVING, ALREADY TAKING ANTIBIOTICS. ha1 06:10 Coronavirus screen: Client denies travel out of the [place] in the last 14 days. Ebola ha1 Screen: No symptoms or risks identified at this time. Initial Sepsis Screen: Does the patient meet any 2 criteria? No. Patient's initial sepsis screen is negative. Does the patient have a suspected source of infection? No. Patient's initial sepsis screen is negative. Risk Assessment: Do you want to hurt yourself or someone else? Patient reports no desire to harm self or others. Onset of symptoms was March 25, 2025. 06:10 Method Of Arrival: EMS: [facility] ha1 06:10 Acuity: ELISE 4 ha1 Triage Assessment: 06:10 General: Appears uncomfortable, Behavior is cooperative. Pain: Complains of pain in ha1 mouth Pain currently is 10 out of 10 on a pain scale. Quality of pain is described as aching. Neuro: Level of Consciousness is awake, alert, obeys commands, Oriented to person, place, time, situation. Cardiovascular: Capillary refill < 3 seconds Patient's skin is warm and dry. Respiratory: Airway is patent Respiratory effort is even, unlabored, Respiratory pattern is. Historical: - Allergies: 06:10 Sulfa (Sulfonamide Antibiotics); ha1 - PMHx: 06:10 drug abuse; HEP C; ha1 - PSHx: 06:10 L tib-fib sx; ha1 - Immunization history:: Adult Immunizations not up to date. - Infectious Disease History:: Denies. - Social history:: Smoking status: Patient reports the use of cigarette tobacco products, smokes one pack cigarettes per day. Patient uses alcohol, occasionally. street drugs. Vital Signs: 06:10 BP 108 / 71; Pulse 70; Resp 18 S; Temp 97.6; Pulse Ox 96% on R/A; Weight 83.91 kg; ha1 Height 5 ft. 7 in. ; Pain 02/13; 06:10 Body Mass Index 28.97 (83.91 kg, 170.18 cm) ha1 06:10 Pain Scale: Adult ha1 ED Course: 06:08 Patient arrived in ED. ha1 06:28 Triage completed. ha1 07:06 Karen Salazar MD is Attending Physician. sp3 Administered Medications: 06:38 Drug: Ibuprofen PO 800 mg PO once Route: PO; kd3 Outcome: 07:37 Discharge ordered by . sp3 08:04 Patient left the ED. Signatures: Coreen Rosas RN RN Karen Salazar MD MD sp3 Kendy Alcaraz RN RN kd3 Karina Cui RN RN 1
--- NOTE | 2025-03-25 07:38 | EDPHYS ---
Physician Documentation [facility] Name: Brie Heredia Age: 40 yrs Sex: Male : 1985 Arrival Date: 03/25/2025 Time: 05:57 Bed DX3 Private MD: ED Physician Karen Salazar HPI: 03/25 07:35 This 40 yrs old Male presents to ER via EMS with complaints of tootache. sp3 07:35 40-year-old male with history of drug abuse, hepatitis C, recurrent dental problems now sp3 presents for recurrent right upper maxillary tooth pain. Patient has not made an appointment with dentist yet. He keeps stating that he needs to. No reported fever, throat pain, neck pain, or other pain. ROS otherwise negative.. Historical: - Allergies: 06:10 Sulfa (Sulfonamide Antibiotics); ha1 - PMHx: 06:10 drug abuse; HEP C; ha1 - PSHx: 06:10 L tib-fib sx; ha1 - Immunization history:: Adult Immunizations not up to date. - Infectious Disease History:: Denies. - Social history:: Smoking status: Patient reports the use of cigarette tobacco products, smokes one pack cigarettes per day. Patient uses alcohol, occasionally. street drugs. ROS: 07:36 Constitutional: Negative for fever, chills, and weight loss, Eyes: Negative for injury, sp3 pain, redness, and discharge, Neck: Negative for injury, pain, and swelling, Cardiovascular: Negative for chest pain, palpitations, and edema, Respiratory: Negative for shortness of breath, cough, wheezing, and pleuritic chest pain, Abdomen/GI: Negative for abdominal pain, nausea, vomiting, diarrhea, and constipation, Back: Negative for injury and pain, MS/Extremity: Negative for injury and deformity, Skin: Negative for injury, rash, and discoloration, Neuro: Negative for headache, weakness, numbness, tingling, and seizure, Psych: Negative for depression, anxiety, suicide ideation, homicidal ideation, and hallucinations, Allergy/Immunology: Negative for hives, rash, and allergies, Endocrine: Negative for neck swelling, polydipsia, polyuria, polyphagia, and marked weight changes, Hematologic/Lymphatic: Negative for swollen nodes, abnormal bleeding, and unusual bruising, 07:36 All other systems are negative, Exam: 07:36 Constitutional: This is a well developed, well nourished patient who is awake, alert, sp3 and in no acute distress. Head/Face: Normocephalic, atraumatic. Eyes: Pupils equal round and reactive to light, extra-ocular motions intact. Lids and lashes normal. Conjunctiva and sclera are non-icteric and not injected. Cornea within normal limits. Periorbital areas with no swelling, redness, or edema. Neck: Trachea midline, no thyromegaly or masses palpated, and no cervical lymphadenopathy. Supple, full range of motion without nuchal rigidity, or vertebral point tenderness. No Meningismus. Chest/axilla: Normal chest wall appearance and motion. Nontender with no deformity. No lesions are appreciated. Cardiovascular: Regular rate and rhythm with a normal S1 and S2. No gallops, murmurs, or rubs. Normal PMI, no JVD. No pulse deficits. Respiratory: Lungs have equal breath sounds bilaterally, clear to auscultation and percussion. No rales, rhonchi or wheezes noted. No increased work of breathing, no retractions or nasal flaring. Abdomen/GI: Soft, non-tender, with normal bowel sounds. No distension or tympany. No guarding or rebound. No evidence of tenderness throughout. Back: No spinal tenderness. No costovertebral tenderness. Full range of motion. Skin: Warm, dry with normal turgor. Normal color with no rashes, no lesions, and no evidence of cellulitis. MS/ Extremity: Pulses equal, no cyanosis. Neurovascular intact. Full, normal range of motion. Neuro: Awake and alert, GCS 15, oriented to person, place, time, and situation. Cranial nerves II-XII grossly intact. Motor strength 5/5 in all extremities. Sensory grossly intact. Cerebellar exam normal. Normal gait. Psych: Awake, alert, with orientation to person, place and time. Behavior, mood, and affect are within normal limits. 07:36 ENT: Poor dentition throughout. No obvious swelling or infection noted.. Vital Signs: 06:10 BP 108 / 71; Pulse 70; Resp 18 S; Temp 97.6; Pulse Ox 96% on R/A; Weight 83.91 kg; ha1 Height 5 ft. 7 in. ; Pain 9/10; 06:10 Body Mass Index 28.97 (83.91 kg, 170.18 cm) ha1 06:10 Pain Scale: Adult ha1 MDM: 07:06 Medical Screening Exam initiated sp3 07:37 Data reviewed: vital signs, nurses notes. ED course: 40-year-old male with PMH above sp3 now with recurrent dental pain. Differential diagnosis includes dental caries versus dental infection versus dental abscess versus other process. Patient needs to follow-up with dentistry. We will refill his ibuprofen and discharge. He is already on antibiotics.. Administered Medications: 06:38 Drug: Ibuprofen PO 800 mg PO once Route: PO; kd3 Disposition Summary: 03/25/25 07:37 Discharge Ordered Notes: Location: Home sp3 Condition: Stable sp3 Diagnosis - Dental pain sp3 Followup: sp3 - With: Private Physician - When: Upon discharge from the Emergency Department - Reason: Continuance of care Discharge Instructions: - Discharge Summary Sheet sp3 - Dental Pain sp3 Forms: - Medication Reconciliation Form sp3 - Antibiotic Education sp3 - Prescription Opioid Use sp3 - Patient Portal Instructions sp3 - Leadership Thank You Letter sp3 Prescriptions: - Ibuprofen 600 mg Oral Tablet - take 1 tablet ORAL route every 6 hours As needed take with food; 30 tablet; sp3 Refills: 0, Product Selection Permitted Signatures: Karen Salazar MD MD sp3 Kendy Alcaraz RN RN 3 Karina Cui RN RN 1
[2025-03-25 11:58] VITALS: BP 108/71; TEMP 97.6; O2SAT 96
== END 2025-03-25 08:04 | disposition home or self-care (01) ==
LOC: ER 05:57
DX: K08.89 Other specified disorders of teeth and supporting structures (principal)
CPT/HCPCS: 99283